=== PATIENT | male | born 1995 | race Caucasian/White ===

== ENCOUNTER 2018-05-04 15:26 | Emergency (ER) | payer OTHER ==
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
[2018-05-04 17:05] VITALS: BP 125/53
== END 2018-05-04 17:08 | disposition home or self-care (01) ==
LOC: ER 15:26
DX: S02.2XXA Fracture of nasal bones, initial encounter for closed fracture (principal); Y04.2XXA Assault by strike against or bumped into by another person, initial encounter
CPT/HCPCS: 70150; 99283